=== PATIENT | male | born 1985 | race Caucasian/White ===

== ENCOUNTER 2021-06-29 11:10 | Outpatient (CLI) | payer BC | END 2021-06-29 11:11 | disposition home or self-care (01) | LOC: BICRAD 11:10 | PROVIDERS: ATTEND Internal Medicine | DX: R05 Cough (principal) | CPT/HCPCS: 71046 ==

== ENCOUNTER 2021-08-19 07:33 | Outpatient (CLI) | payer BC ==
[2021-08-19] MEDS ORDERED: Iopamidol 370 76% 100 ML VIAL ONE (09:41)
== END 2021-08-19 07:34 | disposition home or self-care (01) ==
LOC: CT 07:33
PROVIDERS: ATTEND Internal Medicine Cardiovascular Disease
DX: I77.1 Stricture of artery (principal)
CPT/HCPCS: 71275

== ENCOUNTER 2022-07-04 08:11 | Outpatient (CLI) | payer BC | END 2022-07-04 08:12 | disposition home or self-care (01) | LOC: BICRAD 08:11 | PROVIDERS: ATTEND Internal Medicine | DX: M79.672 Pain in left foot (principal) ==

== ENCOUNTER 2022-11-17 10:24 | Outpatient (CLI) | payer BC | END 2022-11-17 10:25 | disposition home or self-care (01) | LOC: BICRAD 10:24 | PROVIDERS: ATTEND Internal Medicine | DX: R07.89 Other chest pain (principal) | CPT/HCPCS: 71046 ==

== ENCOUNTER 2023-02-08 12:23 | Outpatient (CLI) | payer BC | END 2023-02-08 12:24 | disposition home or self-care (01) | LOC: RAD 12:23 | PROVIDERS: ATTEND Nurse Practitioner Family | DX: R05.9 Cough, unspecified (principal) | CPT/HCPCS: 71046 ==